=== PATIENT | female | born 1975 | race Two or more races ===

== ENCOUNTER 2019-04-01 22:18 | Emergency (ER) | payer OTHER ==
[~2019-04-01] VITALS: Ht 152.4 cm; Wt 68.0 kg
[2019-04-01 22:35] VITALS: BP 183/109
--- NOTE | 2019-04-01 22:35 | NUR ---
ED Nurse Note: Patient walked in c/o upper abdominal pain, N/V since 2199. Pt stated the pain radiated to Rt shoulder. Pt stated she took omeprazole. Pt states pain is worse after food. AAO x4, VSS at this time, skin ios dry warm to touch.
[2019-04-01] MEDS ORDERED: Lidocaine 2% Visc 15ml soln ORAL ONE (23:00)
[2019-04-01] MEDS ORDERED: Dicyclomine HCl 10mg/5ml oral soln ORAL ONE (23:00)
[2019-04-01] MEDS ORDERED: Mylanta II UD 30ml ORAL ONE (23:00)
[2019-04-01 23:05] LABS: APPEARANCE,URINE CLEAR; BILIRUBIN, URINE NEGATIVE (NEGATIVE); GLUCOSE, URINE (UA) NEGATIVE (NEGATIVE); KETONES,URINE NEGATIVE (NEGATIVE); LEUKOCYTE ESTERASE ,URINE NEGATIVE (NEGATIVE); NITRITE,URINE NEGATIVE (NEGATIVE); PH,URINE 7 (4.5-8.0); PROTEIN,URINE 2+ (NEGATIVE); UROBILINOGEN,URINE NORMAL MG/DL (0.0-1.0)
[2019-04-01 23:15] LABS: COLOR,URINE PALE YELLOW
[2019-04-01 23:17] LABS: BASOPHILS % (AUTO) 0.7 % (0.0-2.0); EOSINOPHILS % (AUTO) 0.8 % (0.0-3.0); HEMATOCRIT 42.6 % (37.0-47.0); HEMOGLOBIN 14.6 G/DL (12.0-16.0); LYMPHOCYTES % (AUTO) 27.4 % (20.0-45.0); MEAN CORPUSCULAR VOLUME 85 FL (80-99); MONOCYTES % (AUTO) 6.5 % (1.0-10.0); NEUTROPHILS % (AUTO) 64.6 % (45.0-75.0); PLATELET COUNT 154 K/UL (150-450); RED BLOOD COUNT 5.03 M/UL (4.20-5.40); RED CELL DISTRIBUTION WIDTH 12.1 % (11.6-14.8)
[2019-04-01 23:19] LABS: ANION GAP 13 mmol/L (5-15); BLOOD UREA NITROGEN 8 mg/dL (7-18); CALCIUM 9.2 MG/DL (8.5-10.1); CARBON DIOXIDE 21 MMOL/L (21-32); CHLORIDE 104 MMOL/L (98-107); CREATININE 0.8 MG/DL (0.55-1.30); POTASSIUM 3.3 MMOL/L (3.5-5.1); SODIUM 137 MMOL/L (136-145)
[2019-04-01 23:21] LABS: INR 0.9 (0.9-1.1)
[2019-04-01 23:24] LABS: ALANINE AMINOTRANSFERASE 67 U/L (12-78); ALBUMIN 4.3 G/DL (3.4-5.0); ALKALINE PHOSPHATASE 120 U/L (46-116); ASPARTATE AMINO TRANSFERASE 63 U/L (15-37); BILIRUBIN,TOTAL 0.8 MG/DL (0.2-1.0)
[2019-04-02 00:03] VITALS: BP 179/88
--- NOTE | 2019-04-02 00:39 | Emergency Room Report ---
History of Present Illness General Chief Complaint: Abdominal Pain Source: Patient Present Illness HPI 43-year-old female no past medical history presents with epigastric pain, some shortness of breath, burning epigastric pain started 2200, patient had some cereal earlier, unknown aggravating relieving factors severity is been mild, constant, patient denies any family history of cardiac disease, patient has never had a stress test patient presents for evaluation Allergies: Coded Allergies: No Known Allergies (Unverified , 04/01/19) Patient History Past Medical History: see triage record Last Menstrual Period: 03/2019 Now: No Reviewed Nursing Documentation: PMH: Agreed; PSxH: Agreed Nursing Documentation-PMH Past Medical History: No Stated History Review of Systems All Other Systems: negative except mentioned in HPI Physical Exam Vital Signs Date Time Temp Pulse Resp B/P (MAP) Pulse Ox O2 Delivery O2 Flow Rate FiO2 04/01/19 22:24 97.9 90 16 183/109 (133) 97 Room Air Sp02 EP Interpretation: reviewed, normal General Appearance: well appearing, no apparent distress, alert Head: normocephalic, atraumatic Eyes: bilateral eye PERRL, bilateral eye EOMI ENT: uvula midline, moist mucus membranes Neck: supple, thyroid normal, supple/symm/no masses Respiratory: lungs clear, no respiratory distress, no retraction, no accessory muscle use Cardiovascular #1: normal peripheral pulses, regular rate, rhythm, no edema, no gallop, no murmur Gastrointestinal: soft, no guarding, no rebound, tenderness - Mid epigastric region Musculoskeletal: normal inspection Neurologic: alert, oriented x3 Psychiatric: mood/affect normal Skin: no rash, warm/dry Medical Decision Making Diagnostic Impression: Primary Impression: Atypical chest pain ER Course 43-year-old female presents with atypical chest pain, appears to be associated with food, differential diagnosis includes gastritis, peptic ulcer disease, ACS Patient's pain resolved with GI cocktail, 2 troponins negative, counseled patient to follow-up with cardiology Disposition home with return precautions, chest x-ray negative, EKG negative. Laboratory Tests Test 04/01/19 22:40 04/01/19 22:58 04/02/19 02:00 Urine Color Pale yellow Urine Appearance Clear Urine pH 7 (4.5-8.0) Urine Specific Webb 1.010 (1.005-1.035) Urine Protein 2+ (NEGATIVE) H Urine Glucose (UA) Negative (NEGATIVE) Urine Ketones Negative (NEGATIVE) Urine Blood 2+ (NEGATIVE) H Urine Nitrite Negative (NEGATIVE) Urine Bilirubin Negative (NEGATIVE) Urine Urobilinogen Normal MG/DL (0.0-1.0) Urine Leukocyte Esterase Negative (NEGATIVE) Urine RBC 0-2 /HPF (0 - 2) Urine WBC 0 /HPF (0 - 2) Urine Squamous Epithelial Cells Occasional /LPF Urine Bacteria None /HPF (NONE) Urine HCG, Qualitative Negative (NEGATIVE) White Blood Count 10.0 K/UL (4.8-10.8) Red Blood Count 5.03 M/UL (4.20-5.40) Hemoglobin 14.6 G/DL (12.0-16.0) Hematocrit 42.6 % (37.0-47.0) Mean Corpuscular Volume 85 FL (80-99) Mean Corpuscular Hemoglobin 29.1 PG (27.0-31.0) Mean Corpuscular Hemoglobin Concent 34.3 G/DL (32.0-36.0) Red Cell Distribution Width 12.1 % (11.6-14.8) Platelet Count 154 K/UL (150-450) Mean Platelet Volume 13.4 FL (6.5-10.1) H Neutrophils (%) (Auto) 64.6 % (45.0-75.0) Lymphocytes (%) (Auto) 27.4 % (20.0-45.0) Monocytes (%) (Auto) 6.5 % (1.0-10.0) Eosinophils (%) (Auto) 0.8 % (0.0-3.0) Basophils (%) (Auto) 0.7 % (0.0-2.0) Prothrombin Time 9.4 SEC (9.30-11.50) Prothrombin Time INR 0.9 (0.9-1.1) PTT 28 SEC (23-33) Sodium Level 137 MMOL/L (136-145) Potassium Level 3.3 MMOL/L (3.5-5.1) L Chloride Level 104 MMOL/L (98-107) Carbon Dioxide Level 21 MMOL/L (21-32) Anion Gap 13 mmol/L (5-15) Blood Urea Nitrogen 8 mg/dL (7-18) Creatinine 0.8 MG/DL (0.55-1.30) Estimate Glomerular Filtration Rate > 60 mL/min (>60) Glucose Level 120 MG/DL (74-106) H Calcium Level 9.2 MG/DL (8.5-10.1) Total Bilirubin 0.8 MG/DL (0.2-1.0) Aspartate Amino Transferase (AST) 63 U/L (15-37) H Alanine Aminotransferase (ALT) 67 U/L (12-78) Alkaline Phosphatase 120 U/L (46-116) H Troponin I 0.000 ng/mL (0.000-0.056) 0.008 ng/mL (0.000-0.056) Total Protein 8.5 G/DL (6.4-8.2) H Albumin 4.3 G/DL (3.4-5.0) Globulin 4.2 g/dL Albumin/Globulin Ratio 1.0 (1.0-2.7) Lipase 135 U/L (73-393) Human Chorionic Gonadotropin, Quant < 1 mIU/mL (1-6) L EKG Diagnostic Results EKG Time: 23:07 EP Interpretation: NSR, rate 72, QTc 446, no acute ST elevations, normal axis Rhythm Strip Diag. Results Rhythm Strip Time: 02:35 EP Interpretation: yes Rate: 69 Rhythm: NSR, no PVC's, no ectopy Chest X-Ray Diagnostic Results Chest X-Ray Diagnostic Results : Chest X-Ray Ordered: Yes # of Views/Limited/Complete: 1 View Indication: Chest Pain EP Interpretation: Yes Interpretation: no consolidation, no effusion, no pneumothorax, no acute cardiopulmonary disease Impression: No acute disease Electronically Signed by: Trevor Kulkarni MD Last Vital Signs Date Time Temp Pulse Resp B/P (MAP) Pulse Ox O2 Delivery O2 Flow Rate FiO2 04/02/19 00:03 97.9 88 16 179/88 97 Room Air Disposition: HOME, SELF-CARE Condition: Stable Scripts Famotidine (PEPCID AC) 20 Mg Tablet 20 MG PO BID, #60 TAB Prov: Trevor Kulkarni MD 04/02/19 Referrals: [facility],REFERRING (PCP) [facility] Patient Instructions: Nonspecific Chest Pain Additional Instructions: The patient was provided with discharge instructions, notified to follow-up with a primary care doctor and or specialist in the next 24-48 hours, and to return to the ED if they have worsening of their symptoms. Please note that this report is being documented using [employer] technology. This can lead to erroneous entry secondary to incorrect interpretation by the dictating instrument. PLEASE OBTAIN AN OUTPATIENT STRESS TEST WITH YOUR BALLOON TESTER Trevor Bran MD Apr 02, 2019 00:39
[2019-04-02] MEDS ORDERED: PEPCID AC20 M2 PO (02:37)
[2019-04-02 02:39] VITALS: BP 179/88
--- NOTE | 2019-04-02 02:40 | NUR ---
ED Nurse Note: Pt cleared by health care Provider for discharge. DC instructions/prescription was given and explained to pt and verbalized understanding of teachings. All medical deviecs such as ID band removed. Pt is AAO x4, ambulatory and left with all personal belongings.
--- NOTE | 2019-04-02 11:41 | Diagnostic Imaging Report ---
Indication: Dyspnea Comparison: None A single view chest radiograph was obtained. Findings: Cardiomediastinal appearance is within normal limits for age. The lungs are clear. Pulmonary vascularity is appropriate. The diaphragmatic contour is smooth and costophrenic angles are sharp. No pleural effusions are identified. The bones are unremarkable. Impression: No acute findings
== END 2019-04-02 02:59 | disposition home or self-care (01) ==
LOC: EMR 22:51
DX: R07.89 Other chest pain (principal)
CPT/HCPCS: 36415; 71045; 80053; 81003; 81025; 83690; 84484; 84702; 85025; 85610; 85730; 93005; 96361; 96374; S0028; Z7502; 99284; J7030

== ENCOUNTER 2019-06-14 02:56 | Emergency (ER) | payer OTHER ==
[~2019-06-14] VITALS: Ht 152.4 cm; Wt 68.0 kg
[~2019-06-14 02:56] MED LIST: PEPCID AC20 M2 PO
--- NOTE | 2019-06-14 03:30 | NUR ---
ED Nurse Note: received pt from triage, pt walked in c/o upper epigastric pain radiating to both side of abd to back and shoulder pain, pt states pain started around 2am and woke up with pressure heavy pain. denies any burning or tearing pain nor sharp pain. pt states she has nausea as well but denies vomiting/constipation/diarrhea. pt states she had one mixed drink and ate tacos last night around 8pm but denies any symptoms. denies sob nor cp. vss, sinus rhythm on acid correction hand, EKG obtainted by exercise equipment repair technician, will cont monitor.
--- NOTE | 2019-06-14 03:40 | NUR ---
ED Nurse Note: BLOOD SPECIMEN SENT TO LAB.
[2019-06-14] MEDS ORDERED: Lidocaine 2% Visc 15ml soln ORAL ONE (03:45)
[2019-06-14] MEDS ORDERED: Mylanta II UD 30ml ORAL ONE (03:45)
[2019-06-14 03:46] LABS: BASOPHILS % (AUTO) 0.6 % (0.0-2.0); EOSINOPHILS % (AUTO) 1.4 % (0.0-3.0); HEMATOCRIT 38.3 % (37.0-47.0); HEMOGLOBIN 12.8 G/DL (12.0-16.0); LYMPHOCYTES % (AUTO) 28.5 % (20.0-45.0); MEAN CORPUSCULAR VOLUME 88 FL (80-99); MONOCYTES % (AUTO) 5.9 % (1.0-10.0); NEUTROPHILS % (AUTO) 63.6 % (45.0-75.0); PLATELET COUNT 155 K/UL (150-450); RED BLOOD COUNT 4.37 M/UL (4.20-5.40); RED CELL DISTRIBUTION WIDTH 12.5 % (11.6-14.8); WHITE BLOOD COUNT 7.4 K/UL (4.8-10.8)
--- NOTE | 2019-06-14 03:53 | Emergency Room Report ---
History of Present Illness General Chief Complaint: Pain Source: Patient Present Illness HPI 43-year-old female history of hypertension, no family history of cardiac disease , no recent stress test presents with vague epigastric pain sharp/pressure-like in nature started at 3 AM no radiation to the left arm, no shortness of breath she does endorse some nausea no diaphoresis, no known aggravating alleviating factors severity was mild, slowly resolving, not associated with activity. Patient denies any dyspnea on exertion, no shortness of breath, she does endorse some nausea. She endorses eating hot tacos as well as a mixed drink before going to bed. Patient states the chest pain is slowly resolving without any intervention. Patient presents for evaluation Allergies: Coded Allergies: No Known Allergies (Unverified , 04/01/19) Patient History Past Medical History: see triage record Reviewed Nursing Documentation: PMH: Agreed; PSxH: Agreed Nursing Documentation-PMH Hx Hypertension: Yes Review of Systems All Other Systems: negative except mentioned in HPI Physical Exam Vital Signs Date Time Temp Pulse Resp B/P (MAP) Pulse Ox O2 Delivery O2 Flow Rate FiO2 06/14/19 03:01 97.5 91 16 149/96 (113) 98 Room Air Sp02 EP Interpretation: reviewed, normal General Appearance: well appearing, no apparent distress, alert Head: normocephalic, atraumatic Eyes: bilateral eye PERRL, bilateral eye EOMI ENT: uvula midline, moist mucus membranes Neck: supple, thyroid normal, supple/symm/no masses Respiratory: lungs clear, no respiratory distress, no retraction, no accessory muscle use Cardiovascular #1: normal peripheral pulses, regular rate, rhythm, no edema, no gallop, no murmur Gastrointestinal: non tender, soft, no guarding, no rebound Musculoskeletal: normal inspection Neurologic: alert, oriented x3 Psychiatric: mood/affect normal Skin: no rash, warm/dry Medical Decision Making Diagnostic Impression: Primary Impression: Atypical chest pain Additional Impressions: Asymptomatic gallstones Gastritis Qualified Codes: K29.20 - Alcoholic gastritis without bleeding ER Course 43-year-old female presents with atypical chest pain that has since resolved, may be associated with food. Differential diagnosis includes ACS, pneumonia, gastritis Patient with a heart score of 1 Patient found to have a slightly elevated lipase, epigastric pain has resolved with GI cocktail additionally patient with a slight transaminitis however patient also drinks some alcohol confounding factors, no right upper quadrant pain on exam no Campos sign, patient is tolerating p.o. in the department, counseled patient that she needs to follow-up with GI and be evaluated [id number] ultrasound done only for [id number] testing shows gallstones however no pericholecystic fluid no thickened gallbladder wall Pain resolved troponin negative disposition home with return precautions Disposition home with return precautions Laboratory Tests Test 06/14/19 03:30 White Blood Count 7.4 K/UL (4.8-10.8) Red Blood Count 4.37 M/UL (4.20-5.40) Hemoglobin 12.8 G/DL (12.0-16.0) Hematocrit 38.3 % (37.0-47.0) Mean Corpuscular Volume 88 FL (80-99) Mean Corpuscular Hemoglobin 29.3 PG (27.0-31.0) Mean Corpuscular Hemoglobin Concent 33.4 G/DL (32.0-36.0) Red Cell Distribution Width 12.5 % (11.6-14.8) Platelet Count 155 K/UL (150-450) Mean Platelet Volume 14.3 FL (6.5-10.1) H Neutrophils (%) (Auto) 63.6 % (45.0-75.0) Lymphocytes (%) (Auto) 28.5 % (20.0-45.0) Monocytes (%) (Auto) 5.9 % (1.0-10.0) Eosinophils (%) (Auto) 1.4 % (0.0-3.0) Basophils (%) (Auto) 0.6 % (0.0-2.0) Sodium Level 141 MMOL/L (136-145) Potassium Level 3.5 MMOL/L (3.5-5.1) Chloride Level 106 MMOL/L (98-107) Carbon Dioxide Level 26 MMOL/L (21-32) Anion Gap 10 mmol/L (5-15) Blood Urea Nitrogen 12 mg/dL (7-18) Creatinine 0.9 MG/DL (0.55-1.30) Estimate Glomerular Filtration Rate > 60 mL/min (>60) Glucose Level 115 MG/DL (74-106) H Calcium Level 8.0 MG/DL (8.5-10.1) L Total Bilirubin 0.4 MG/DL (0.2-1.0) Aspartate Amino Transferase (AST) 73 U/L (15-37) H Alanine Aminotransferase (ALT) 89 U/L (12-78) H Alkaline Phosphatase 120 U/L (46-116) H Troponin I 0.000 ng/mL (0.000-0.056) Pro-B-Type Natriuretic Peptide 50 pg/mL (0-125) Total Protein 7.5 G/DL (6.4-8.2) Albumin 3.5 G/DL (3.4-5.0) Globulin 4.0 g/dL Albumin/Globulin Ratio 0.9 (1.0-2.7) L Lipase 443 U/L (73-393) H Human Chorionic Gonadotropin, Quant 1 mIU/mL (1-6) EKG Diagnostic Results EKG Time: 03:28 EP Interpretation: NSR, rate 80, QTc 442, no acute ST elevations, normal axis Rhythm Strip Diag. Results Rhythm Strip Time: 03:33 EP Interpretation: yes Rate: 80 Rhythm: NSR, no PVC's, no ectopy Chest X-Ray Diagnostic Results Chest X-Ray Diagnostic Results : Chest X-Ray Ordered: Yes # of Views/Limited/Complete: 1 View Indication: Chest Pain EP Interpretation: Yes Interpretation: no consolidation, no effusion, no pneumothorax, no acute cardiopulmonary disease Impression: No acute disease Electronically Signed by: Trevor Kulkarni MD Last Vital Signs Date Time Temp Pulse Resp B/P (MAP) Pulse Ox O2 Delivery O2 Flow Rate FiO2 06/14/19 03:01 97.5 91 16 149/96 (113) 98 Room Air Disposition: HOME, SELF-CARE Condition: Stable Scripts Famotidine* (Pepcid 20mg tablet*) 20 Mg Tablet 20 MG ORAL TWICE A DAY, #60 TAB 0 Refills Prov: Trevor Kulkarni MD 06/14/19 Referrals: [facility],REFERRING (PCP) Liam Baumann MD [facility]. [facility] Patient Instructions: Cholelithiasis, [id number], Gastritis, Adult, Easy-to- Read, Lipase Test, Nonspecific Chest Pain Additional Instructions: The patient was provided with discharge instructions, notified to follow-up with a primary care doctor and or specialist in the next 24-48 hours, and to return to the ED if they have worsening of their symptoms. Please note that this report is being documented using [email or web address] technology. This can lead to erroneous entry secondary to incorrect interpretation by the dictating instrument. Trevor Kulkarni MD Jun 14, 2019 03:53
[2019-06-14 03:56] VITALS: BP 148/80
[2019-06-14 04:05] LABS: ANION GAP 10 mmol/L (5-15); BLOOD UREA NITROGEN 12 mg/dL (7-18); CARBON DIOXIDE 26 MMOL/L (21-32); CHLORIDE 106 MMOL/L (98-107); CREATININE 0.9 MG/DL (0.55-1.30); POTASSIUM 3.5 MMOL/L (3.5-5.1); SODIUM 141 MMOL/L (136-145)
[2019-06-14 04:10] LABS: ALANINE AMINOTRANSFERASE 89 U/L (12-78); ALBUMIN 3.5 G/DL (3.4-5.0); ALBUMIN/GLOBULIN RATIO 0.9 (1.0-2.7); ALKALINE PHOSPHATASE 120 U/L (46-116); ASPARTATE AMINO TRANSFERASE 73 U/L (15-37); BILIRUBIN,TOTAL 0.4 MG/DL (0.2-1.0)
[2019-06-14] MEDS ORDERED: FAMOTIDINE20 MG ORAL (04:55)
--- NOTE | 2019-06-14 05:23 | NUR ---
ED Nurse Note: pt cleared to be d/c per ERMD, pt discharge and aftercare instruction w/ prescription provided, pt advised to follow up with pcp or return to ed if changes in condition or worsening sx, pt education done via discussion and handout, pt verbalized understanding. pt states feeling better with medications. vss, iv d/c and id band removed, left w/ all belongings accompanied by friend.
--- NOTE | 2019-06-14 05:23 | Diagnostic Imaging Report ---
EXAM: XR Chest, 1 View CLINICAL HISTORY: CP TECHNIQUE: Frontal view of the chest. COMPARISON: 04/01/2019 chest x-ray FINDINGS: Lungs: Unremarkable. No consolidation. Pleural space: Unremarkable. No pneumothorax. Heart: Unremarkable. No cardiomegaly. Mediastinum: Unremarkable. Bones/joints: Unremarkable. IMPRESSION: Normal chest x-ray.
[2019-06-14 05:25] VITALS: BP 120/70
== END 2019-06-14 05:25 | disposition home or self-care (01) ==
LOC: EMR 03:11
DX: R07.89 Other chest pain (principal); K80.80 Other cholelithiasis without obstruction; K29.20 Alcoholic gastritis without bleeding; I10 Essential (primary) hypertension
CPT/HCPCS: 36415; 71045; 80053; 83690; 83880; 84484; 84702; 85025; 93005; 96374; 96375; J2405; S0028; Z7502; 99284

== ENCOUNTER 2019-12-12 23:01 | Emergency (ER) | payer MEDICAID, OTHER ==
[~2019-12-12] VITALS: Ht 152.4 cm; Wt 68.0 kg
[~2019-12-12 23:01] MED LIST changes: +FAMOTIDINE20 MG ORAL
[2019-12-12] MEDS ORDERED: LOSARTAN POTASS25 MG ORAL (23:06)
[2019-12-12 23:13] VITALS: BP 164/118
--- NOTE | 2019-12-12 23:13 | NUR ---
ED Nurse Note: pt ambulated into ed from home CO right flank pain and right upper abdominal pain. Pt states that pain is 8/10 x 2 hours. Pt states hx of gall stones and believes pain is d/t recurrence. Pt aao x4, ambulates with steady gait. BP slightly elevated, ERMD aware. Pt placed in gown. IV initiated, blood sent to lab. Pt states she cannot provide urine sample yet. Will continue to monitor. ERMD at bedside.
[2019-12-12] MEDS ORDERED: Morphine Sulfate 4mg/ml Inj (IV USE ONLY) IVP ONE (23:15)
--- NOTE | 2019-12-12 23:17 | Emergency Room Report ---
History of Present Illness General Chief Complaint: Abdominal Pain Source: Patient, Medical Record Present Illness HPI This is a 44-year-old female with a history of high blood pressure. She also has history of gallstone. She presents with chief complaint of abdominal pain. Onset was about 2 hours ago. Pain is localized to right upper quadrant. Pain is sharp in nature. 9 out of 10. Pain radiates to the back to the inferior scapular area. Worse with palpation. nothing made it better. Similar symptom in the past but more severe today. Has nausea and vomiting. No diarrhea. No left upper quadrant pain. Allergies: Coded Allergies: No Known Allergies (Unverified , 04/01/19) COVID-19 Screening Contact w/high risk pt: No Experienced COVID-19 symptoms?: No COVID-19 Testing performed TUG HAND: Yes COVID-19 Screening: Negative COVID-19 COVID-19 Testing Source: 12/04/19 Patient History Past Medical History: see triage record, old chart reviewed, HTN Past Surgical History: none Pertinent Family History: none Social History: Denies: smoking Last Menstrual Period: n/a Now: No Immunizations: other Reviewed Nursing Documentation: PMH: Agreed; PSxH: Agreed Nursing Documentation-PMH Past Medical History: No History, Except For Hx Hypertension: Yes Review of Systems Eye: Denies: eye pain, blurred vision ENT: Denies: ear pain, nose congestion, throat swelling Respiratory: Denies: cough, shortness of breath Cardiovascular: Denies: chest pain, palpitations Gastrointestinal: Reports: abdominal pain, nausea, vomiting; Denies: diarrhea Musculoskeletal: Denies: back pain, joint pain Skin: Denies: rash Neurological: Denies: headache, numbness Endocrine: Denies: increased thirst, increased urine Hematologic/Lymphatic: Denies: easy bruising All Other Systems: negative except mentioned in HPI Physical Exam Vital Signs Date Time Temp Pulse Resp B/P (MAP) Pulse Ox O2 Delivery O2 Flow Rate FiO2 12/12/19 23:03 98.2 79 18 164/118 (133) 97 Room Air Vitals with high blood pressure Sp02 EP Interpretation: reviewed, normal General Appearance: well appearing, no apparent distress, alert Head: normocephalic, atraumatic Eyes: bilateral eye PERRL, bilateral eye EOMI ENT: hearing grossly normal, normal pharynx Neck: full range of motion, supple, no meningismus Respiratory: chest non-tender, lungs clear, normal breath sounds Cardiovascular #1: regular rate, rhythm, no murmur Gastrointestinal: normal bowel sounds, no mass, no organomegaly, no bruit, non- distended, tenderness - Right upper quadrant Musculoskeletal: back normal, normal range of motion, gait/station normal Psychiatric: mood/affect normal Medical Decision Making Diagnostic Impression: Primary Impression: Cholelithiasis Qualified Codes: K80.20 - Calculus of gallbladder without cholecystitis without obstruction Additional Impression: Biliary colic ER Course Patient presents with symptoms consistent with biliary colic. She has previous ultrasound which confirmed this already. Laboratory data showed no evidence of elevated LFTs or bilirubin. Pain is well controlled now. Will discharge home. Last Vital Signs Date Time Temp Pulse Resp B/P (MAP) Pulse Ox O2 Delivery O2 Flow Rate FiO2 12/12/19 23:03 98.2 79 18 164/118 (133) 97 Room Air Status: improved Disposition: HOME, SELF-CARE Condition: Stable Scripts Hydrocodone/Acetaminophen 5-325* (HYDROCODONE/ACETAMINOPHEN 5-325*) 1 Each Tablet 1 TAB ORAL Q6H PRN for For Pain, #20 TAB 0 Refills Prov: Antione Cornelius MD 12/13/19 Additional Instructions: Follow-up with your doctor in a week. You may need referral to see a surgeon for gallbladder surgery. Return if symptoms worsen. Antione Cornelius MD Dec 12, 2019 23:17
--- NOTE | 2019-12-12 23:20 | NUR ---
ED Nurse Note: all medications administered, pt tolerated well no ss of distress noted. will continue to monitor.
[2019-12-12 23:31] LABS: BASOPHILS % (AUTO) 1.1 % (0.0-2.0); EOSINOPHILS % (AUTO) 0.9 % (0.0-3.0); HEMATOCRIT 40.3 % (37.0-47.0); HEMOGLOBIN 13.2 G/DL (12.0-16.0); LYMPHOCYTES % (AUTO) 32.9 % (20.0-45.0); MEAN CORPUSCULAR VOLUME 89 FL (80-99); MONOCYTES % (AUTO) 6.2 % (1.0-10.0); NEUTROPHILS % (AUTO) 58.8 % (45.0-75.0); PLATELET COUNT 141 K/UL (150-450); RED BLOOD COUNT 4.53 M/UL (4.20-5.40); RED CELL DISTRIBUTION WIDTH 12.3 % (11.6-14.8); WHITE BLOOD COUNT 8.5 K/UL (4.8-10.8)
[2019-12-12 23:37] LABS: ANION GAP 13 mmol/L (5-15); BLOOD UREA NITROGEN 11 mg/dL (7-18); CALCIUM 8.3 MG/DL (8.5-10.1); CARBON DIOXIDE 23 MMOL/L (21-32); CHLORIDE 104 MMOL/L (98-107); POTASSIUM 3.6 MMOL/L (3.5-5.1); SODIUM 140 MMOL/L (136-145)
[2019-12-12 23:41] LABS: ALANINE AMINOTRANSFERASE 32 U/L (12-78); ALKALINE PHOSPHATASE 85 U/L (46-116); ASPARTATE AMINO TRANSFERASE 20 U/L (15-37); BILIRUBIN,TOTAL 0.4 MG/DL (0.2-1.0)
--- NOTE | 2019-12-12 23:55 | NUR ---
ED Nurse Note: pt able to provide UA. UA sent to lab.
[2019-12-13 00:07] LABS: APPEARANCE,URINE CLEAR; BILIRUBIN, URINE NEGATIVE (NEGATIVE); COLOR,URINE PALE YELLOW; GLUCOSE, URINE (UA) NEGATIVE (NEGATIVE); KETONES,URINE NEGATIVE (NEGATIVE); LEUKOCYTE ESTERASE ,URINE NEGATIVE (NEGATIVE); NITRITE,URINE NEGATIVE (NEGATIVE); PH,URINE 6.5 (4.5-8.0); PROTEIN,URINE NEGATIVE (NEGATIVE); UROBILINOGEN,URINE NORMAL MG/DL (0.0-1.0)
--- NOTE | 2019-12-13 00:26 | NUR ---
ED Nurse Note: pt states that pain is returning and increasing. ERMD notified. awaiting further orders.
[2019-12-13] MEDS ORDERED: Morphine Sulfate 4mg/ml Inj (IV USE ONLY) IVP ONE (00:30)
[2019-12-13] MEDS ORDERED: HYDROCODON-ACE1 EA15 ORAL (00:57)
[2019-12-13 01:03] VITALS: BP 164/118
--- NOTE | 2019-12-13 01:03 | NUR ---
ER DISCHARGE NOTE: Patient is cleared to be discharged per ERMD, pt is aox4, on room air, with stable vital signs. pt was given dc and prescription instructions, pt was able to verbalize understanding, pt id band and iv site removed without complications. pt is able to ambulate with steady gait. pt took all belongings.
== END 2019-12-13 01:03 | disposition home or self-care (01) ==
LOC: EMR 23:20
DX: K80.70 Calculus of gallbladder and bile duct without cholecystitis without obstruction (principal); I10 Essential (primary) hypertension
CPT/HCPCS: 36415; 80053; 81003; 81025; 83690; 85025; 96361; 96374; 96375; 96376; J2270; J2405; J7030; Z7502; 99284